=== PATIENT | female | born 1995 | race Caucasian/White ===

== ENCOUNTER 2017-09-02 18:04 | Emergency (ER) | payer BC ==
--- NOTE | 2017-09-02 19:57 | EDM.PDOC ---
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 She states that her periods are usually regular and the current menses started on time. As well as prolonged, this period has been heavier than usual--soaking about 4-5 pads a day. She is on control pills--combination oral contraceptive--and has been taking them. She is sexually active. Did not take a test at home. She also has not been feeling a little nauseated, occasional vomiting, crampy in the abdomen and unusually tired. 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 Abdominal Pain Score (Numeric/FACES): 2 - Related Data Allergies Allergy/AdvReac Type Severity Reaction Status Date / Time No Known Allergies Allergy Verified 09/02/17 18:26 Home Meds: Home Meds Norgestimate-Ethinyl Estradiol [Tri-Linyah Tablet] 1 mg PO DAILY 09/02/17 [ History] Past Medical History - Past Health History Medical/Surgical History: Denies Medical/Surgical History Social & Family History - Tobacco Use Smoking Status *Q: Never Smoker Second Hand Smoke Exposure: No - Caffeine Use Caffeine Use: Reports: None - Recreational Drug Use Recreational Drug Use: No ED ROS GENERAL - Review of Systems Review Of Systems: ROS reveals no pertinent complaints other than HPI. GI/Abdominal: Denies: Abdominal Pain, Black Stool, Bloody Stool, Constipation, Diarrhea : Denies: Dysuria ED EXAM, RENAL/ - Physical Exam Exam: See Below Exam Limited By: No Limitations General Appearance: Alert, No Apparent Distress Ears: Normal External Exam Nose: Normal Inspection Throat/Mouth: Normal Inspection Head: Atraumatic, Normocephalic Neck: Normal Inspection Respiratory/Chest: No Respiratory Distress, Lungs Clear, Normal Breath Sounds Cardiovascular: Normal Peripheral Pulses, Regular Rate, Rhythm, No Murmur GI/Abdominal: Soft Extremities: Normal Inspection Neurological: Alert, Oriented Psychiatric: Normal Affect, Normal Mood Skin Exam: Warm, Dry, Intact, Normal Color, No Rash Course - Vital Signs Last Recorded V/S: Last Vital Signs Temp 36.1 C 09/02/17 18:22 Pulse 88 01/09/18 18:22 Resp 18 09/02/17 18:22 BP 137/71 09/02/17 18:22 Pulse Ox 98 09/02/17 18:22 - Orders/Labs/Meds Labs: Laboratory Tests 09/02/17 09/02/17 09/02/17 Range/Units 18:56 19:13 19:13 WBC 8.87 (4.0-11.0) K/uL RBC 4.87 (4.30-5.90) M/uL Hgb 14.1 (12.0-16.0) g/dL Hct 41.6 (36.0-46.0) % MCV 85.4 (80.0-98.0) fL MCH 29.0 (27.0-32.0) pg MCHC 33.9 (31.0-37.0) g/dL RDW Std Deviation 40.4 (28.0-62.0) fl RDW Coeff of Meliton 13 (11.0-15.0) % Plt Count 330 (150-400) K/uL MPV 9.70 (7.40-12.00) fL Neut % (Auto) 57.4 (48.0-80.0) % Lymph % (Auto) 31.9 (16.0-40.0) % [place] % (Auto) 9.0 (0.0-15.0) % Eos % (Auto) 1.5 (0.0-7.0) % Baso % (Auto) 0.2 (0.0-1.5) % Neut # (Auto) 5.1 (1.4-5.7) K/uL Lymph # (Auto) 2.8 H (0.6-2.4) K/uL [place] # (Auto) 0.8 (0.0-0.8) K/uL Eos # (Auto) 0.1 (0.0-0.7) K/uL Baso # (Auto) 0.0 (0.0-0.1) K/uL Nucleated RBC % 0.0 /100WBC Nucleated RBCs # 0 K/uL Urine Color YELLOW Urine Appearance CLEAR Urine pH 6.0 (5.0-8.0) Ur Specific [place] >= 1.030 (1.001-1.035) Urine Protein NEGATIVE (NEGATIVE) mg/dL Urine Glucose (UA) NEGATIVE (NEGATIVE) mg/dL Urine Ketones NEGATIVE (NEGATIVE) mg/dL Urine Occult Blood LARGE H (NEGATIVE) Urine Nitrite NEGATIVE (NEGATIVE) Urine Bilirubin NEGATIVE (NEGATIVE) Urine Urobilinogen 0.2 (<2.0) EU/dL Ur Leukocyte Esterase NEGATIVE (NEGATIVE) Urine RBC 1-2 (0-2/HPF) Urine WBC 0-1 (0-5/HPF) Ur Epithelial Cells OCCASIONAL (NONE-FEW) Urine Bacteria RARE (NEGATIVE) Urine HCG, Qual NEGATIVE (NEGATIVE) Departure - Departure Time of Disposition: 19:58 Disposition: Home, Self-Care 01 Condition: Good Clinical Impression: Abnormal uterine bleeding - Discharge Information Referrals: PCP,None [Primary Care Provider] - [facility] [Outside] [facility] [Outside] [facility] [Outside] Additional Instructions: 1. Start taking your next pack of control pills. 2. Make an appointment in women's health or primary care for further evaluation. 3. Your test was negative, you are not anemic and you do not have a UTI. It is uncertain why this menses is long.
== END 2017-09-02 20:10 | disposition home or self-care (01) ==
LOC: MW.ED 18:04
DX: N93.9 Abnormal uterine and vaginal bleeding, unspecified (principal)
CPT/HCPCS: 36415; 81001; 81025; 85025; 99283; 99284

== ENCOUNTER 2021-09-12 20:08 | Inpatient (IN) | payer BC ==
[2021-09-12] MEDS ORDERED: Sodium Chloride 0.9% 2.5 ML Syringe FLUSH PRN (20:28)
[2021-09-12] MEDS ORDERED: Carboprost Tromethamine 250 MCG/1 ML Amp IM PRN (20:28)
[2021-09-12] MEDS ORDERED: Misoprostol 200 MCG Tab PO PRN (20:28)
[2021-09-12] MEDS ORDERED: Tranexamic Acid 1,000 MG in Sodium Chloride 0.9% 100 ML IV PRN (20:28)
[2021-09-12] MEDS ORDERED: Methylergonovine 0.2 MG/1 ML Amp IM PRN (20:28)
[2021-09-12] MEDS ORDERED: Sodium Chloride 0.9% 10 ML Syringe FLUSH PRN (20:28)
[2021-09-12] MEDS ORDERED: Sodium Chloride 0.9% 20 ML SDV IV PRN (20:28)
[2021-09-12] MEDS ORDERED: Nalbuphine 10 MG/1 ML Vial IVPUSH PRN (20:28)
[2021-09-12] MEDS ORDERED: Water For Irrigation,Sterile 1,000 ML Container IRR PRN (20:28)
[2021-09-12] MEDS ORDERED: Ondansetron 4 MG/2 ML SDV IVPUSH PRN (20:28)
[2021-09-12] MEDS ORDERED: Lidocaine 1% 50 ML MDV INJECT PRN (20:28)
[2021-09-12] MEDS ORDERED: Butorphanol 1 MG/ML SDV IVPUSH PRN (20:28)
[2021-09-12] MEDS ORDERED: Oxytocin/0.9 % Sodium Chloride 30 UNIT/500 ML BAG IV SCH ×2 (20:30→20:45)
[2021-09-12] MEDS ORDERED: Terbutaline 1 MG/ML SDV SUBCUT PRN (20:31)
[2021-09-12] MEDS: Lactated Ringers 1,000 ML IV SCH (21:00)
[2021-09-12] MEDS ORDERED: Misoprostol 25 MCG (1/4 of 100 MCG) Tab VAG PRN (22:00)
[2021-09-13] MEDS ORDERED: Misoprostol 25 MCG (1/4 of 100 MCG) Tab VAG PRN (02:00)
[2021-09-13] MEDS: Lactated Ringers 1,000 ML IV SCH ×4 (03:00→16:30)
[2021-09-13] MEDS ORDERED: Ondansetron 4 MG/2 ML SDV ONE (09:29)
[2021-09-13] MEDS ORDERED: Ropivacaine HCl/PF 100 ML ONE (09:36)
[2021-09-13] MEDS ORDERED: ePHEDrine 50 MG/ML SDV IVPUSH PRN ×2 (09:48)
[2021-09-13] MEDS ORDERED: fentaNYL 100 MCG/2 ML SDV ONE (10:00)
[2021-09-13] MEDS ORDERED: Ropivacaine HCl/PF 200 MG in Premix Bag 1 BAG EPIDUR SCH (10:00)
[2021-09-13] MEDS ORDERED: Lidocaine 2% 5 ML SDV ONE (10:01)
[2021-09-13] MEDS ORDERED: Docusate Sodium 100 MG Cap PO PRN (19:38)
[2021-09-13] MEDS ORDERED: oxyCODONE 5 MG Tab PO PRN (19:38)
[2021-09-13] MEDS ORDERED: Witch Hazel Medicated Pads 40/Jar TOP PRN (19:38)
[2021-09-13] MEDS ORDERED: Lanolin 100% Cream 7 GM Tube TOP PRN (19:38)
[2021-09-13] MEDS ORDERED: Bisacodyl 10 MG Supp RECTAL PRN (19:38)
[2021-09-13] MEDS ORDERED: Benzocaine/Menthol 20%-0.5% Spray 78 GM Cannister TOP PRN (19:38)
[2021-09-13] MEDS ORDERED: Acetaminophen 500 MG Tab PO PRN (19:38)
[2021-09-13] MEDS ORDERED: Ibuprofen 400 MG Tab PO PRN (19:38)
[2021-09-13] MEDS: Ibuprofen 800 MG Tab PO PRN (21:06)
[2021-09-13] MEDS ORDERED: Calcium Carbonate 500 MG Tab.Chew PO PRN (23:23)
[2021-09-14] MEDS: Acetaminophen 500 MG Tab PO PRN ×2 (02:20→08:58)
[2021-09-14] MEDS: Ibuprofen 800 MG Tab PO PRN ×2 (04:53→14:15)
[2021-09-15] MEDS: Acetaminophen 500 MG Tab PO PRN (09:06)
== END 2021-09-15 17:45 | disposition home or self-care (01) | DRG 560 ==
LOC: MW.OB 20:08 → MW.OBCHECK 20:08 → MW.OB 20:15 → MW.OBCHECK 20:15 → OBSVTOIN 09-13 18:36 → MW.OB 09-14 05:24
PROVIDERS: ADMIT Obstetrics & Gynecology; ATTEND Obstetrics & Gynecology
PROC: 10E0XZZ Delivery of Products of Conception, External Approach (ICD-10-PCS; principal; 2021-09-13)
PROC: 10907ZC Drainage of Amniotic Fluid, Therapeutic from Products of Conception, Via Natural or Artificial Opening (ICD-10-PCS; 2021-09-13)
PROC: 0HQ9XZZ Repair Perineum Skin, External Approach (ICD-10-PCS; 2021-09-13)
PROC: 0UQMXZZ Repair Vulva, External Approach (ICD-10-PCS; 2021-09-13)
PROC: 3E0R3BZ Introduction of Anesthetic Agent into Spinal Canal, Percutaneous Approach (ICD-10-PCS; 2021-09-13)
PROC: 00HU33Z Insertion of Infusion Device into Spinal Canal, Percutaneous Approach (ICD-10-PCS; 2021-09-13)
DX: O99.214 Obesity complicating childbirth (principal); Z37.0 Single live birth; O71.82 Other specified trauma to perineum and vulva; O70.0 First degree perineal laceration during delivery; O69.81X0 Labor and delivery complicated by cord around neck, without compression, not applicable or unspecified; Z20.822 Contact with and (suspected) exposure to COVID-19; Z3A.39 39 weeks gestation of pregnancy
CPT/HCPCS: 01967; 36415; 51702; 59025; 59409; 59414; 85014; 85018; 85027; 86592; 86850; 86900; 86901; A9270-GY; J0595; J2405; J2590; J2795; J3010; J7120; U0002

== ENCOUNTER 2023-03-21 09:41 | Inpatient (IN) | payer BC ==
[2023-03-21 10:16] LABS: APPEARANCE,URINE CLEAR; BILIRUBIN,URINE NEGATIVE (NEGATIVE); COLOR,URINE YELLOW; GLUCOSE,URINE NEGATIVE (NEGATIVE); KETONES,URINE NEGATIVE (NEGATIVE); LEUKOCYTE ESTERASE,URINE NEGATIVE (NEGATIVE); NITRITE,URINE NEGATIVE (NEGATIVE); OCCULT BLOOD,URINE MODERATE (NEGATIVE); PH,URINE 6.5 (5.0-8.0); PROTEIN,URINE NEGATIVE (NEGATIVE); UROBILINOGEN,URINE 0.2 EU/dL (<2.0)
[2023-03-21] MEDS ORDERED: Ondansetron 4 MG/2 ML SDV IVPUSH PRN (11:00)
[2023-03-21] MEDS ORDERED: Carboprost Tromethamine 250 MCG/1 mL Vial IM PRN (11:00)
[2023-03-21] MEDS ORDERED: Lidocaine 1% 50 ML MDV INJECT PRN (11:00)
[2023-03-21] MEDS ORDERED: Oxytocin/0.9 % Sodium Chloride 30 UNIT/500 ML BAG IV SCH ×2 (11:00→17:45)
[2023-03-21] MEDS ORDERED: Water For Irrigation,Sterile 1,000 ML Container IRR PRN (11:00)
[2023-03-21] MEDS ORDERED: Sodium Chloride 0.9% 2.5 ML Syringe FLUSH PRN (11:00)
[2023-03-21] MEDS ORDERED: Tranexamic Acid 1,000 MG in Sodium Chloride 0.9% 100 ML IV PRN (11:00)
[2023-03-21] MEDS ORDERED: Methylergonovine 0.2 MG/1 ML Amp IM PRN (11:00)
[2023-03-21] MEDS ORDERED: Sodium Chloride 0.9% 20 ML SDV IV PRN (11:00)
[2023-03-21] MEDS ORDERED: Sodium Chloride 0.9% 10 ML Syringe FLUSH PRN (11:00)
[2023-03-21] MEDS ORDERED: Butorphanol 1 MG/ML SDV IVPUSH PRN (11:00)
[2023-03-21] MEDS ORDERED: Misoprostol 200 MCG Tab PO PRN (11:00)
[2023-03-21] MEDS ORDERED: ePHEDrine 50 MG/ML SDV IVPUSH PRN ×2 (11:01)
[2023-03-21] MEDS ORDERED: Phenylephrine HCl 0.5 MG/5 ML AMP IVPUSH PRN (11:01)
[2023-03-21] MEDS ORDERED: Ropivacaine HCl/PF 400 MG in Premix Bag 1 BAG EPIDUR SCH (11:15)
[2023-03-21] MEDS: Lactated Ringers 1,000 ML IV SCH ×2 (12:55→21:01)
[2023-03-21 13:41] LABS: HEMOGLOBIN 12.4 g/dL (12.0-16.0); MEAN CORPUSCULAR HEMOGLOBIN 28.2 pg (27.0-32.0); MEAN CORPUSCULAR HGB CONC 33.5 g/dL (31.0-37.0); MEAN CORPUSCULAR VOLUME 84.3 fL (80.0-98.0); MEAN PLATELET VOLUME 9.7 fL (7.40-12.00); RED BLOOD CELL COUNT 4.39 M/uL (4.30-5.90); WHITE BLOOD CELL COUNT,WBC 9.71 K/uL (4.0-11.0)
[2023-03-21] MEDS ORDERED: Terbutaline 1 MG/ML SDV SUBCUT PRN (17:33)
[2023-03-22] MEDS ORDERED: Witch Hazel Medicated Pads 40/Jar TOP PRN (06:48)
[2023-03-22] MEDS ORDERED: Ibuprofen 400 MG Tab PO PRN (06:48)
[2023-03-22] MEDS ORDERED: Lanolin 100% Cream 7 GM Tube TOP PRN (06:48)
[2023-03-22] MEDS ORDERED: Benzocaine/Menthol 20%-0.5% Spray 78 GM Cannister TOP PRN (06:48)
[2023-03-22] MEDS ORDERED: Tranexamic Acid 1,000 MG in Sodium Chloride 0.9% 100 ML IV PRN (06:48)
[2023-03-22] MEDS ORDERED: Acetaminophen 500 MG Tab PO PRN (06:48)
[2023-03-22] MEDS ORDERED: Methylergonovine 0.2 MG/1 ML Amp IM PRN (06:48)
[2023-03-22] MEDS ORDERED: Bisacodyl 10 MG Supp RECTAL PRN (06:48)
[2023-03-22 07:09] LABS: PH,UMBILICAL ARTERIAL 7.215 (7.18-7.38)
[2023-03-22 07:10] LABS: PH,UMBILICAL VENOUS 7.338 (7.25-7.45)
[2023-03-22] MEDS: Prenatal Multivitamin with Calcium/Folic Acid/Iron Tab PO SCH (08:21)
[2023-03-22] MEDS: Acetaminophen 500 MG Tab PO PRN ×3 (08:22→21:17)
[2023-03-22] MEDS: Ibuprofen 800 MG Tab PO PRN ×3 (08:23→21:19)
[2023-03-22] MEDS: Docusate Sodium 100 MG Cap PO PRN (20:46)
[2023-03-23 05:35] LABS: HEMATOCRIT 32.7 % (36.0-46.0); HEMOGLOBIN 10.7 g/dL (12.0-16.0)
[2023-03-23] MEDS: Prenatal Multivitamin with Calcium/Folic Acid/Iron Tab PO SCH (08:35)
[2023-03-23] MEDS: Docusate Sodium 100 MG Cap PO PRN (12:46)
[2023-03-23] MEDS: Ibuprofen 800 MG Tab PO PRN (21:11)
[2023-03-23] MEDS: Acetaminophen 500 MG Tab PO PRN (21:12)
[2023-03-24] MEDS: Acetaminophen 500 MG Tab PO PRN (09:49)
[2023-03-24] MEDS: Docusate Sodium 100 MG Cap PO PRN (09:49)
[2023-03-24] MEDS: Prenatal Multivitamin with Calcium/Folic Acid/Iron Tab PO SCH (09:49)
== END 2023-03-24 22:00 | disposition home or self-care (01) | DRG 560 ==
LOC: MW.OBCHECK 09:41 → MW.OB 09:42 → MW.OBCHECK 11:00 → OBSVTOIN 03-22 06:26 → MW.OB 03-22 10:58
PROVIDERS: ADMIT Obstetrics & Gynecology; ATTEND Obstetrics & Gynecology
PROC: 10E0XZZ Delivery of Products of Conception, External Approach (ICD-10-PCS; principal; 2023-03-22)
PROC: 3E0R3BZ Introduction of Anesthetic Agent into Spinal Canal, Percutaneous Approach (ICD-10-PCS; 2023-03-22)
PROC: 00HU33Z Insertion of Infusion Device into Spinal Canal, Percutaneous Approach (ICD-10-PCS; 2023-03-22)
DX: O42.02 Full-term premature rupture of membranes, onset of labor within 24 hours of rupture (principal); Z3A.39 39 weeks gestation of pregnancy; Z90.49 Acquired absence of other specified parts of digestive tract; Z37.0 Single live birth
CPT/HCPCS: 36415; 51702; 59025; 59409; 81003; 82803; 84112; 85014; 85018; 85027; 86592; 86850; 86900; 86901; A9270-GY; J2590; J7120